=== PATIENT | female | born 2000 | race Two or more races ===

== ENCOUNTER 2022-12-13 11:05 | Emergency (ER) | payer OTHER ==
[~2022-12-13] VITALS: Ht 157.5 cm; Wt 61.2 kg
[2022-12-13] MEDS ORDERED: OMEPRAZOLE MAGN20 MG PO (11:24)
[2022-12-13] MEDS ORDERED: NORTREL 1-35 21 EAC1 PO (11:24)
[2022-12-13] MEDS ORDERED: METFORMIN HCL500 M2 PO (11:25)
[2022-12-13] MEDS ORDERED: ADIPEX-P37.5 MG PO (11:26)
[2022-12-13] MEDS ORDERED: MULTI-VITAMIN1 EACH PO (11:26)
[2022-12-13] MEDS ORDERED: METAXALONE800 MG PO (15:33)
[2022-12-13] MEDS ORDERED: DIAZEPAM2 MG PO (15:33)
[2022-12-13] MEDS ORDERED: CELEBREX200MG PO (15:33)
== END 2022-12-13 15:42 | disposition home or self-care (01) ==
LOC: ER 11:05
DX: S33.5XXA Sprain of ligaments of lumbar spine, initial encounter (principal); W19.XXXA Unspecified fall, initial encounter; Y93.9 Activity, unspecified; Y92.9 Unspecified place or not applicable; Y99.9 Unspecified external cause status; Z91.011 Allergy to milk products; Z87.11 Personal history of peptic ulcer disease